=== PATIENT | female | born 1990 | race Caucasian/White ===

== ENCOUNTER 2016-11-24 11:24 | Emergency (ER) | payer MEDICAID, OTHER ==
[~2016-11-24] VITALS: Wt 56.5 kg
[~2016-11-24 11:24] MED LIST: CIPR500T4 PO; HYOS0.1274 PO; METR500T PO; ONDA-43 PO
[2016-11-24 12:34] LABS: URINE BLOOD (Dip) POC Negative (NEGATIVE)
[2016-11-24] MEDS ORDERED: CEFTRIAXONE 250 MG INJ IM ONE (14:00)
[2016-11-24] MEDS ORDERED: AZITHROMYCIN 250 MG TAB PO ONE (14:00)
[2016-11-24] MEDS ORDERED: FLUC150T17 PO (14:24)
--- NOTE | 2016-11-24 16:32 | ERD ---
ER Documentation Chief Complaint Date/Time DATE: 11/24/16 TIME: 16:17 Chief Complaint VAGINAL DISCHARGE FOR THE PAST FEW DAYS. NO FEVERS. MILD PAIN HPI This is a 26-year-old female presenting to the emergency department for dysuria and white vaginal discharge x 3 days. Patient states for the past 3 days she has had itching to vagina with large amount of white cottage cheese like discharge. Patient also reports foul odor. Patient is concerned because she has a new sexual partner and had unprotected sexual intercourse. No pelvic pain or vaginal bleeding. Patient was recently on MetroGel for treatment of BV. No rashes or lesions. No fevers or chills. No abdominal or back pain. ROS All systems reviewed and are negative except as per history of present illness. Medications Home Meds Active Scripts Fluconazole* (Diflucan*) 150 Mg Tablet, 150 MG PO ONCE, #1 TAB Prov:MICHAEL PLAZA NP 11/24/16 Metronidazole* (Flagyl*) 500 Mg Tablet, 500 MG PO TID for 5 Days, TAB Prov:JAKOB GRAVES S. 09/22/14 Ciprofloxacin Hcl* (Ciprofloxacin Hcl*) 500 Mg Tablet, 500 MG PO BID for 5 Days , TAB Prov:RUBY GRAVESP S. 09/22/14 Ondansetron Hcl* (Zofran*) 4 Mg Tab, 4 MG PO Q6H Y for NAUSEA AND OR VOMITING for 30 Days, TAB Prov:RUBY GRAVESP S. 09/22/14 Hyoscyamine Sulfate* (Levsin*) 0.125 Mg Tab, 0.125 MG PO AC MEALS for 30 Days, 1 Refill Prov:JAKOB GRAVES S. 09/22/14 Allergies Allergies: Coded Allergies: No Known Drug Allergies (Verified Allergy, Mild, 09/20/14) PMhx/Soc History of Surgery: No Anesthesia Reaction: No Hx Neurological Disorder: No Hx Respiratory Disorders: Yes (bronchitis) Hx Cardiac Disorders: No Hx Psychiatric Problems: Yes (anxiety) Hx Miscellaneous Medical Probl: No Hx Alcohol Use: Yes (2x a week) Hx Substance Use: No Hx Tobacco Use: Yes (1 pack a day) Smoking Status: Current every day smoker Physical Exam Vitals Vital Signs Date Time Temp Pulse Resp B/P Pulse Ox O2 Delivery O2 Flow Rate FiO2 11/24/16 12:20 98.1 78 20 125/77 98 Physical Exam Const: No acute distress. Head: Atraumatic Eyes: Normal Conjunctiva ENT: Normal External Ears, Nose and Mouth. Neck: Full range of motion..~ No meningismus. Resp: Clear to auscultation bilaterally Cardio: Regular rate and rhythm, no murmurs Abd: Soft, non tender, non distended. Normal bowel sounds Skin: No petechiae or rashes Back: No midline or flank tenderness Ext: No cyanosis, or edema Neur: Awake and alert Psych: Normal Mood and Affect : Small amount of white, curd-like discharge from vaginal vault. no rashes or lesions. Results 24 hrs Laboratory Tests Test 11/24/16 12:37 Bedside Urine Blood Negative Bedside Urine Glucose (UA) Negative Bedside Urine Ketones (LAB) Trace Bedside Urine Leukocyte Esterase (L Trace Bedside Urine Nitrite (LAB) Negative Bedside Urine Protein (LAB) Negative Bedside Urine pH (LAB) 5.0 Current Medications Medications (Trade) Dose Ordered Sig/Yolanda Route PRN Reason Start Time Stop Time Status Last Admin Dose Admin Ceftriaxone Sodium (Rocephin) 250 mg ONCE ONCE IM 11/24/16 14:00 11/24/16 14:01 DC 11/24/16 14:16 Azithromycin (Zithromax) 1,000 mg ONCE ONCE PO 11/24/16 14:00 11/24/16 14:01 DC 11/24/16 14:16 Procedures/MDM ED COURSE: The patient was stable throughout ED course. I kept the patient and/or family informed of laboratory and diagnostic imaging results throughout the ED course. Laboratory Urine dip0 trace leukocytes gonorrhea/chlamydia- pending MDM: This is a 26-year-old female presenting to the emergency department for dysuria, pruritus and white vaginal discharge x 3 days. Patient has recent new sexual partner and is concerned about STDs. Urine shows trace leukocyte esterase and trace ketones. gonorrhea and chlamydia urine test awaiting results. Patient counselled on preventing STDs and prophylactic treatment of gonorrhea/chlamydia. Patient agrees to plan of care and received Rocephin 250mg IM and azithromycin 1g PO while in the ED as prophylactic care of gonorrhea and chlamydia. Patient tolerated medications well. Vital signs are stable. No fevers or chills. No vaginal bleeding or pelvic cramping. No abdominal pain or back pain. No vomiting or diarrhea. Differential diagnosis includes but not limited to UTI, gonorrhea, chlamydia, bacterial vaginosis, vaginitis, candidal infection or pelvic inflammatory disease. Patient is appropriate for outpatient management will be given prescription for Diflucan. Instructed patient to follow-up with primary care provider in the next 24-48 hours for reassessment and additional management. Instructed patient that we will be receiving results of gonorrhea and chlamydia inthe next few days. Return to ED for any high fever, chest pain, difficulty breathing, shortness breath, wheezing, vomiting, diarrhea, abdominal pain or any new or worsening symptoms. Patient verbalizes understanding. All questions answered at discharge. Departure Diagnosis: Primary Impression: Dysuria Condition: Stable Patient Instructions: Dysuria Referrals: [facility] YOU HAVE RECEIVED A MEDICAL SCREENING EXAM AND THE RESULTS INDICATE THAT YOU DO NOT HAVE A CONDITION THAT REQUIRES URGENT TREATMENT IN THE EMERGENCY DEPARTMENT. FURTHER EVALUATION AND TREATMENT OF YOUR CONDITION CAN WAIT UNTIL YOU ARE SEEN IN YOUR DOCTORS OFFICE WITHIN THE NEXT 1-2 DAYS. IT IS YOUR RESPONSIBILITY TO MAKE AN APPOINTMENT FOR FOLOW-UP CARE. IF YOU HAVE A PRIMARY DOCTOR --you should call your primary doctor and schedule an appointment IF YOU DO NOT HAVE A PRIMARY DOCTOR YOU CAN CALL OUR PHYSICIAN REFERRAL HOTLINE AT IF YOU CAN NOT AFFORD TO SEE A PHYSICIAN YOU CAN CHOSE FROM THE FOLLOWING [facility] [address] [facility]. [facility] [address] [facility] [address] [facility] [facility] [address] [facility] [facility] [address] [facility]. [facility]. [address] [facility]. [facility] YOU HAVE RECEIVED A MEDICAL SCREENING EXAM AND THE RESULTS INDICATE THAT YOU DO NOT HAVE A CONDITION THAT REQUIRES URGENT TREATMENT IN THE EMERGENCY DEPARTMENT. FURTHER EVALUATION AND TREATMENT OF YOUR CONDITION CAN WAIT UNTIL YOU ARE SEEN IN YOUR DOCTORS OFFICE WITHIN THE NEXT 1-2 DAYS. IT IS YOUR RESPONSIBILITY TO MAKE AN APPOINTMENT FOR FOLOW-UP CARE. IF YOU HAVE A PRIMARY DOCTOR --you should call your primary doctor and schedule and appointment IF YOU DO NOT HAVE A PRIMARY DOCTOR YOU CAN CALL OUR PHYSICIAN REFERRAL HOTLINE AT . IF YOU CAN NOT AFFORD TO SEE A PHYSICIAN YOU CAN CHOSE FROM THE FOLLOWING [facility] INSTITUTIONS: [facility] [address] [place] [address] [facility] [address] [place] [address] [facility] + [facility] [address] [place] [address] Additional Instructions: Call your primary care doctor TOMORROW for an appointment during the next 2-3 days.See the doctor sooner or return here if your condition worsens before your appointment time. Return to ED for any high fever, chest pain, difficulty breathing, shortness breath, wheezing, vomiting, diarrhea, abdominal pain or any new or worsening symptoms. MICHAEL PLAZA NP Nov 24, 2016 16:31
== END 2016-11-24 14:47 | disposition home or self-care (01) ==
LOC: FTE 11:24
DX: R30.0 Dysuria (principal); F17.210 Nicotine dependence, cigarettes, uncomplicated
CPT/HCPCS: 81003; 87086; 87591; 96372; J0696; Z7502; Z7610

== ENCOUNTER 2016-12-04 04:52 | Emergency (ER) | payer SELFPAY ==
[~2016-12-04] VITALS: Ht 162.6 cm; Wt 50.0 kg
[~2016-12-04 04:52] MED LIST changes: +FLUC150T17 PO
[2016-12-04 05:12] VITALS: Ht 162.6 cm; Wt 50.0 kg
== END 2016-12-04 05:53 | disposition left against medical advice (07) ==
LOC: FTE 04:52
DX: Z53.21 Procedure and treatment not carried out due to patient leaving prior to being seen by health care provider (principal)

== ENCOUNTER 2017-07-01 21:04 | Emergency (ER) | payer SELFPAY ==
[~2017-07-01] VITALS: Ht 160 cm; Wt 57.5 kg
[2017-07-01 22:01] VITALS: Ht 160 cm; Wt 57.5 kg
== END 2017-07-02 01:05 | disposition left against medical advice (07) ==
LOC: FTE 21:04
DX: Z53.21 Procedure and treatment not carried out due to patient leaving prior to being seen by health care provider (principal)